=== PATIENT | male | born 1960 | race Caucasian/White ===

== ENCOUNTER → 2018-05-18 | Outpatient (CLI) | payer BC ==
--- NOTE | 2018-05-18 13:23 | CTL ---
EXAMINATION TYPE: CT Low Dose Lung DATE OF EXAM ORDERED: 05/18/2018 HISTORY: Personal history of tobacco abuse. Lung cancer screening CT DLP: [address] CTDI: 1.99 mGy Automated exposure control for dose reduction was used. SCREENING VISIT: Initial COMPARISON: None TECHNIQUE: Low dose computed tomography scan was performed through the chest at 1 mm thick sections a nd reconstructed images in the coronal plane at [address] DIAGNOSTIC QUALITY: Limited, but interpretable FINDINGS: LUNG NODULES: None. LUNGS: COPD: Severity: Mild Fibrosis: Severity: Biapical pleural-parenchymal scarring, left greater than right Lymph nodes: Nonenlarged Other findings: Mild diffuse peribronchial cuffing. RIGHT PLEURAL SPACE: Effusion: None Calcification: None Thickening: None Pneumothorax: None LEFT PLEURAL SPACE: Effusion: None Calcification: None Thickening: None Pneumothorax: None HEART: Heart Size: Nonenlarged Coronary calcification: Mild Pericardial effusion: None OTHER FINDINGS: Upper abdomen: Unremarkable on the limited unenhanced portions Bony thorax: Minimal multilevel degenerative change Supraclavicular region: Unremarkable IMPRESSION: Mild pulmonary emphysematous changes and biapical pleural parenchymal scarring with no si zable pulmonary nodules detected on the current examination however continued screening is recommende d in this patient with increased risk for development of pulmonary carcinoma. Diffuse peribronchial c uffing most commonly is seen in reactive airway disease in this patient with underlying emphysema alt colten can be of infectious etiology. FOLLOW UP CT CHEST RECOMMENDATION: Continued screening with low dose chest CT in 12 months. Tobacco c essation is also suggested. CT LUNG RAD: Lung-Rad 1 Negative
== END | disposition home or self-care (01) ==
LOC: RADCTMAIN 12:39
PROVIDERS: ATTEND Family Medicine
DX: Z12.2 Encounter for screening for malignant neoplasm of respiratory organs (principal); J43.9 Emphysema, unspecified; J98.4 Other disorders of lung; F17.210 Nicotine dependence, cigarettes, uncomplicated

== ENCOUNTER → 2018-06-28 | Outpatient (CLI) | payer BC, OTHER ==
--- NOTE | 2018-06-29 08:13 | US ---
EXAMINATION TYPE: US venous doppler duplex LE LT DATE OF EXAM: 06/28/2018 5:19 PM COMPARISON: NONE CLINICAL HISTORY: [id number] Contusion of left lower leg. Contusion of left lower leg. Injury to left lower leg. SIDE PERFORMED: Left TECHNIQUE: The lower extremity deep venous system is examined utilizing real time linear array sonog carlton with graded compression, doppler sonography and color-flow sonography. VESSELS IMAGED: External Iliac Vein (EIV) Common Femoral Vein Deep Femoral Vein Greater Saphenous Vein * Femoral Vein Popliteal Vein Small Saphenous Vein * Proximal Calf Veins (* superficial vessels) Left Leg: Negative for DVT No evidence of DVT in the left lower extremity. Scanned left posterior calf area of concern. Small amount of edema noted. No fluid collection seen. IMPRESSION: 1. No diagnostic evidence of displaced 2. Soft tissue edema.
== END | disposition home or self-care (01) ==
LOC: RADUSMAIN 16:42
PROVIDERS: ATTEND Pediatrics
DX: M79.89 Other specified soft tissue disorders (principal); S80.12XA Contusion of left lower leg, initial encounter

== ENCOUNTER → 2018-07-20 | Outpatient (CLI) | payer OTHER ==
--- NOTE | 2018-07-22 14:36 | MR ---
EXAMINATION TYPE: MR lumbar spine wo con DATE OF EXAM: 07/20/2018 COMPARISON: None HISTORY: LBP, LLE radic TECHNIQUE: Multiplanar, multisequence images of the lumbar spine were acquired. FINDINGS: There is decreased signal of the bone marrow throughout. Some Modic type II endplate change s are seen of L2 and L3. Additionally there are few areas of scattered T2/T1 hyperintense bone marrow remaining throughout the vertebrae. Multilevel intervertebral disc desiccation is seen. Conus medull molly is unremarkable terminating at L1. Vertebral body alignment is maintained. There is some vertebr al body height loss at multiple levels within the endplates from degenerative disc disease however th ere is anterior height loss of the L5 vertebral body of approximately 20% with no bone marrow edema. L1-L2: There is a right eccentric disc bulge creating mild right neural foraminal narrowing. Left sophia ral foramen and spinal canal are patent. Mild facet arthropathy is seen. L2-L3: There is a right eccentric disc bulge, facet arthropathy, and ligamentum flavum buckling contr ibuting to mild bilateral neuroforaminal foraminal narrowing without spinal canal stenosis. L3-L4: There is a right lateral disc herniation with some extent into the right lateral recess and ne ural foramen resulting in moderate right neural foraminal narrowing and mild left neural foraminal na rrowing in combination with facet arthropathy and mild ligamentum flavum buckling. L4-L5: There is a central disc herniation superimposed upon a broad-based disc bulge that in combinat ion with facet arthropathy and ligamentum flavum buckling create moderate bilateral neural foraminal narrowing and severe spinal canal stenosis. L5-S1: There is a broad-based disc bulge, facet arthropathy, and ligamentum flavum buckling as well a s a congenitally small spinal canal all contributing to severe spinal canal stenosis and mild bilater al neural foraminal narrowing. IMPRESSION: 1. Diffusely abnormal bone marrow signal of the lumbar spine. Multifocal metastasis should be exclude d with correlation with PSA, bone scan, and consideration for contrast-enhanced MRI if PSA and bone s can are negative. Alternatively this can be seen and anemia, chronic disease such as obesity and toba account associate abuse, or myeloproliferative disorders. 2. Chronic mild compression deformity of L5. 3. Severe spinal canal stenosis at L4-L5 and L5-S1 secondary to degenerative disc disease and central disc herniation at L4-L5. 4. Right lateral disc herniation at L3-L4 resulting in moderate right neural foraminal narrowing. 5. Variable degree of neural foraminal narrowing within the remainder of the vertebral levels.
== END | disposition home or self-care (01) ==
LOC: RADMRIMAIN 18:06
PROVIDERS: ATTEND Physical Medicine & Rehabilitation
DX: M48.07 Spinal stenosis, lumbosacral region (principal); M48.061 Spinal stenosis, lumbar region without neurogenic claudication; M51.16 Intervertebral disc disorders with radiculopathy, lumbar region; M51.17 Intervertebral disc disorders with radiculopathy, lumbosacral region; M43.8X6 Other specified deforming dorsopathies, lumbar region
CPT/HCPCS: 72148

== ENCOUNTER → 2018-08-06 | Outpatient (CLI) | payer BC ==
--- NOTE | 2018-08-06 13:54 | NM ---
EXAMINATION TYPE: NM bone scan whole body DATE OF EXAM: 08/06/2018 COMPARISON: MRI 07/20/2018 HISTORY: None Delayed whole-body scanning was performed following the injection of 24.7 mCi Tc 99m MDP. Images acq uired 3 hours post injection. FINDINGS: There is faintly increased uptake seen throughout the thoracic and lumbar spine with most marked love ges at the lumbosacral junction. Abnormal uptake involving the shoulders, hips likely post arthritic. Abnormal uptake involving the posterior right 10th rib may be hypertrophic related to previous trauma . IMPRESSION: 1. Mild increased uptake seen throughout the thoracic and lumbar spine. Given the reduced intensity o f uptake findings likely degenerative. Correlate clinically.
== END | disposition home or self-care (01) ==
LOC: RADNMMAIN 09:56
PROVIDERS: ATTEND Family Medicine
DX: R93.7 Abnormal findings on diagnostic imaging of other parts of musculoskeletal system (principal); R90.89 Other abnormal findings on diagnostic imaging of central nervous system
CPT/HCPCS: 78306; A9503

== ENCOUNTER → 2018-08-24 | Outpatient (CLI) | payer BC ==
--- NOTE | 2018-08-25 19:14 | MR ---
EXAMINATION TYPE: MR lumbar spine w con DATE OF EXAM: 08/24/2018 COMPARISON: Recent MRI lumbar spine July 20, 2018. Nuclear medicine bone scan August 06, 2018 HISTORY: Abnormal MRI, lumbar radiculopathy. TECHNIQUE: Multiplanar, multisequence images of the lumbar spine is performed with IV contrast, utilizing 9 mL i ntravenous Gadavist FINDINGS: Postcontrast images show no suspicious osseous or spinal canal enhancement. Modic type II e ndplate changes in the anterior L2-L3 level are redemonstrated. Overall heterogeneity of bone marrow signal intensity is redemonstrated. Multilevel degenerative changes are again seen as detailed on rec ent MRI report and images. IMPRESSION: As above.
== END ==
LOC: RADMRIMAIN 19:58
PROVIDERS: ATTEND Family Medicine
DX: M47.26 Other spondylosis with radiculopathy, lumbar region (principal)
CPT/HCPCS: 72149; A9585

== ENCOUNTER → 2019-03-01 | Outpatient (CLI) | payer SELFPAY ==
--- NOTE | 2019-03-01 12:54 | XR ---
EXAMINATION TYPE: XR chest 2V DATE OF EXAM: 03/01/2019 COMPARISON: NONE TECHNIQUE: PA and lateral views submitted. HISTORY: Presurgical testing FINDINGS: The lungs are clear and there is no pneumothorax, pleural effusion, or focal pneumonia. Postoperati ve change overlying the cervical spine. Arthropathy of the shoulders. Mild hyperinflation of the lung s correlate for COPD. IMPRESSION: 1. No acute process.
[2019-03-01 13:15] LABS: Basophils % (A) 0 %; Eosinophils # (A) 0.3 k/uL (0-0.7); Eosinophils % (A) 4 %; HCT 45.4 % (39.0-53.0); HGB 15.5 gm/dL (13.0-17.5); Lymphocytes # (A) 1.6 k/uL (1.0-4.8); Lymphocytes % (A) 25 %; MCHC 34.1 g/dL (31.0-37.0); MCV 99.7 fL (80.0-100.0); Mean Platelet Volume 7.5; Monocytes # (A) 0.4 k/uL (0-1.0); Monocytes % (A) 7 %; Neutrophils # (A) 4.1 k/uL (1.3-7.7); Neutrophils % (A) 62 %; Platelet Count 221 k/uL (150-450); RBC 4.56 m/uL (4.30-5.90); RDW 12.2 % (11.5-15.5); WBC 6.6 k/uL (3.8-10.6)
[2019-03-01 13:21] LABS: African American GFR (CKD) >90 (>60 ml/min/1.73 sqM); Anion Gap 9 mmol/L; Blood Urea Nitrogen 16 mg/dL (9-20); Calcium 9.7 mg/dL (8.4-10.2); Carbon Dioxide 27 mmol/L (22-30); Chloride 104 mmol/L (98-107); Glucose 88 mg/dL (74-99); Non-African American GFR(CKD) 80 (>60 ml/min/1.73 sqM); Potassium 4.7 mmol/L (3.5-5.1); Sodium 140 mmol/L (137-145)
[2019-03-01 13:30] LABS: INR 0.9 (<1.2); Prothrombin Time 9.8 sec (9.0-12.0)
[2019-03-01 13:35] LABS: Appearance,Urine Clear (Clear); Bilirubin,Urine Negative (Negative); Blood,Urine Negative (Negative); Color,Urine Colorless; Glucose,Urine (UA) Negative (Negative); Ketones,Urine Negative (Negative); Leukocyte Esterase,Urine Negative (Negative); Nitrite,Urine Negative (Negative); Protein,Urine Negative (Negative); Specific Gravity,Urine 1.001 (1.001-1.035); Urobilinogen,Urine <2.0 mg/dL (<2.0)
== END | disposition home or self-care (01) ==
LOC: LABPAT 12:20
PROVIDERS: ATTEND Orthopaedic Surgery Orthopaedic Surgery of the Spine
DX: Z01.812 Encounter for preprocedural laboratory examination (principal); Z01.818 Encounter for other preprocedural examination; M48.00 Spinal stenosis, site unspecified
CPT/HCPCS: 36415; 71046; 80048; 81003; 85025; 85610; 85730; 93005

== ENCOUNTER → 2019-03-06 | Day surgery (SDC) | payer BC, OTHER ==
[2019-03-04 13:15] VITALS: BMI 29.4
[~2019-03-06] MED LIST: BACITRACIN 50,000 UNIT, POLYMYXIN B 500,000 UNIT in SODIUM CHLORIDE 0.9% IRRIGATIO 1,00... IRRIGATION ONE; BENZOCAINE/MENTHOL LOZENG 1 EACH LOZENGE MUCOUS MEM PRN; DEXAMETHASONE SOD PHOSPHATE 10 MG/ML 1 ML VIAL IV ONE; GELATIN SPONGE,ABSORB (LARGE) 1 EACH SPONGE TOPICAL ONE; GLYCOPYRROLATE 0.2 MG/ML 2 ML VIAL ONE; HYDROcodone/APAP 5-325MG 1 EACH TAB PO ONE; HYDROcodone/APAP 5-325MG 1 EACH TAB PO PRN; HYDROmorphone (PF) 1 MG/ML ONE; HYDROmorphone 0.5 MG/0.5 ML SYRINGE IVP PRN; HYDROmorphone 1 MG/ML 1 ML SYRINGE IVP PRN; IBUPROFEN 600 MG TAB PO PRN; IBUPROFEN 800 MG TAB PO PRN; KETOROLAC 30 MG/ML 1 ML VIAL IVP PRN; LACTATED RINGERS 1,000 ML IV ONE; LACTATED RINGERS 1,000 ML IV SCH; LIDOCAINE 0.5%-EPI 1:200,000 50 ML VIAL SQ ONE; LIDOCAINE 1% 20 ML VIAL (10MG/ML) FOR IV START INTRADERMA PRN; LIDOCAINE 1% INJ 10MG/ML (20 ML MDV) ONE; MAGNESIUM HYDROXIDE 2,400 MG/10 ML CUP PO PRN; MIDAZOLAM 2 MG/2 ML VIAL IV PRN; MIDAZOLAM 2 MG/2 ML VIAL ONE; NEOSTIGMINE 1 MG/ML 10 ML VIAL ONE; ONDANSETRON 4 MG/2 ML VIAL IVP ONE; ONDANSETRON 4 MG/2 ML VIAL IVP PRN; PROPOFOL 10 MG/ML 20 ML VIAL IV ONE; ROCURONIUM BROMIDE 10 MG/ML 10 ML VIAL IV ONE; SCOPOLAMINE 1.5MG/72HR PATCH TRANSDERM ONE; SODIUM CHLORIDE 0.9% 1,000 ML IV SCH; SUCCINYLCHOLINE CHLORIDE 100 MG/5 ML SYR IV ONE; THROMBIN (BOVINE) 5,000 UNIT VIAL TOPICAL ONE; fentaNYL (PF) 50 MCG/ML 2 ML AMP ONE; methylPREDNISolone ACETATE 40 MG/ML 1 ML VIAL MISCELLANE ONE
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
[2019-03-06 10:42] VITALS: TEMP 98.3
[2019-03-06] MEDS: HYDROmorphone 0.5 MG/0.5 ML SYRINGE IVP PRN ×2 (10:50→11:00)
[2019-03-06] MEDS: fentaNYL (PF) 50 MCG/ML 2 ML AMP IV ONE ×2 (11:20→11:35)
[2019-03-06 14:24] VITALS: BP 110/71; PULSE 79; RESP 18
--- NOTE | 2019-03-07 07:58 | FL ---
Fluoroscopy HISTORY: Laminectomy 1 seconds fluoroscopy time supplied to the referring clinician. 1 intraoperative C-arm images docume nt the procedure. See dictated report from orthopedic surgery.
== END | disposition home or self-care (01) ==
LOC: OR 07:18
PROVIDERS: ATTEND Orthopaedic Surgery Orthopaedic Surgery of the Spine
DX: M48.062 Spinal stenosis, lumbar region with neurogenic claudication (principal); M48.07 Spinal stenosis, lumbosacral region; M51.16 Intervertebral disc disorders with radiculopathy, lumbar region; M47.26 Other spondylosis with radiculopathy, lumbar region; M16.0 Bilateral primary osteoarthritis of hip; F17.210 Nicotine dependence, cigarettes, uncomplicated; Z88.0 Allergy status to penicillin; Z88.5 Allergy status to narcotic agent; Z98.890 Other specified postprocedural states; Z79.1 Long term (current) use of non-steroidal anti-inflammatories (NSAID)
CPT/HCPCS: 86900; 86901; 86850; 63047; 63048; J2250; J1030; J2710; J0690; J2405; J2001; J3010; J1170 ×2; J0330; J2704

== ENCOUNTER 2020-12-21 09:34 | Day surgery (SDC) | payer BC ==
[2020-12-17 15:50] VITALS: BMI 29.7
[~2020-12-21 09:34] MED LIST changes: -BACITRACIN 50,000 UNIT, POLYMYXIN B 500,000 UNIT in SODIUM CHLORIDE 0.9% IRRIGATIO 1,00... IRRIGATION ONE; -BENZOCAINE/MENTHOL LOZENG 1 EACH LOZENGE MUCOUS MEM PRN; -DEXAMETHASONE SOD PHOSPHATE 10 MG/ML 1 ML VIAL IV ONE; -GELATIN SPONGE,ABSORB (LARGE) 1 EACH SPONGE TOPICAL ONE; -GLYCOPYRROLATE 0.2 MG/ML 2 ML VIAL ONE; -HYDROcodone/APAP 5-325MG 1 EACH TAB PO ONE; -HYDROcodone/APAP 5-325MG 1 EACH TAB PO PRN; -HYDROmorphone (PF) 1 MG/ML ONE; -HYDROmorphone 0.5 MG/0.5 ML SYRINGE IVP PRN; -HYDROmorphone 1 MG/ML 1 ML SYRINGE IVP PRN; -IBUPROFEN 600 MG TAB PO PRN; -IBUPROFEN 800 MG TAB PO PRN; -KETOROLAC 30 MG/ML 1 ML VIAL IVP PRN; -LACTATED RINGERS 1,000 ML IV ONE; -LIDOCAINE 0.5%-EPI 1:200,000 50 ML VIAL SQ ONE; +LIDOCAINE 1% (10MG/ML) FOR IV START INTRADERMA PRN; -LIDOCAINE 1% 20 ML VIAL (10MG/ML) FOR IV START INTRADERMA PRN; -LIDOCAINE 1% INJ 10MG/ML (20 ML MDV) ONE; -MAGNESIUM HYDROXIDE 2,400 MG/10 ML CUP PO PRN; -MIDAZOLAM 2 MG/2 ML VIAL IV PRN; -MIDAZOLAM 2 MG/2 ML VIAL ONE; -NEOSTIGMINE 1 MG/ML 10 ML VIAL ONE; -ONDANSETRON 4 MG/2 ML VIAL IVP ONE; -ONDANSETRON 4 MG/2 ML VIAL IVP PRN; -PROPOFOL 10 MG/ML 20 ML VIAL IV ONE; -ROCURONIUM BROMIDE 10 MG/ML 10 ML VIAL IV ONE; -SCOPOLAMINE 1.5MG/72HR PATCH TRANSDERM ONE; -SODIUM CHLORIDE 0.9% 1,000 ML IV SCH; -SUCCINYLCHOLINE CHLORIDE 100 MG/5 ML SYR IV ONE; -THROMBIN (BOVINE) 5,000 UNIT VIAL TOPICAL ONE; -fentaNYL (PF) 50 MCG/ML 2 ML AMP ONE; -methylPREDNISolone ACETATE 40 MG/ML 1 ML VIAL MISCELLANE ONE
[2020-12-21 10:24] VITALS: RESP 16; TEMP 97.1
[2020-12-21] MEDS ORDERED: PROPOFOL 10 MG/ML 20 ML VIAL IV ONE (11:36)
--- NOTE | 2020-12-21 11:39 | P.GSHP ---
History of Present Illness H&P Date: 12/21/20 Chief Complaint: Screening colonoscopy This a 60-year-old male presents today for screening colonoscopy. Patient denies a significant GI complaints. Past Medical History Additional Past Medical History / Comment(s): anemia History of Any Multi-Drug Resistant Organisms: None Reported Past Surgical History: Back Surgery, Hernia Repair, Orthopedic Surgery Additional Past Surgical History / Comment(s): colonoscopy,lt shoulder repair Past Anesthesia/Blood Transfusion Reactions: No Reported Reaction Smoking Status: Current every day smoker - Past Family History Mother Family Medical History: No Reported History Father Family Medical History: Cancer Additional Family Medical History / Comment(s): prostate, lymphoma Medications and Allergies Home Medications Medication Instructions Recorded Confirmed Type Ibuprofen [Motrin] 200 - 800 mg PO BID PRN 03/04/19 12/21/20 History Allergies Allergy/AdvReac Type Severity Reaction Status Date / Time codeine Allergy Rash/Hives Verified 12/21/20 10:25 Penicillins Allergy Rash/Hives Verified 12/21/20 10:25 Surgical - Exam Vital Signs Temp Pulse Resp BP Pulse Ox 97.1 F L 91 16 135/87 98 12/21/20 10:23 12/21/20 10:23 12/21/20 10:23 12/21/20 10:23 12/21/20 10:23 - General well developed, well nourished, no distress - Eyes PERRL - ENT normal pinna - Neck no masses - Respiratory normal expansion - Cardiovascular Rhythm: regular - Abdomen Abdomen: soft, non tender Assessment and Plan Assessment: We'll perform screening colonoscopy.
--- NOTE | 2020-12-21 11:47 | P.OP ---
Date of Procedure: 12/21/20 Preoperative Diagnosis: Screening colonoscopy Postoperative Diagnosis: Normal colon Procedure(s) Performed: Colonoscopy Anesthesia: MAC Surgeon: Jose Ramon Matthews Pathology: none sent Condition: stable Disposition: PACU Description of Procedure: PROCEDURE: The patient was placed on the endoscopy table in the lateral position. Digital rectal examination was performed which revealed no abnormalities. The prostate was symmetrical without nodules. Flexible colonoscope was then placed in the patient's anus and passed throughout the entire colon. The ileocecal valve was visualized. The cecum, ascending, transverse, descending and sigmoid colon were normal. The rectum was normal as well. There were no masses, polyps or diverticula noted in the entire colon. SUMMARY OF FINDINGS: Normal colonoscopy.
[2020-12-21 12:08] VITALS: BP 126/75; PULSE 87
== END 2020-12-21 12:26 | disposition home or self-care (01) ==
LOC: ORWHC2ENDO 09:34
PROVIDERS: ATTEND Surgery
DX: Z12.11 Encounter for screening for malignant neoplasm of colon (principal); D64.9 Anemia, unspecified; F17.200 Nicotine dependence, unspecified, uncomplicated; Z98.890 Other specified postprocedural states; Z80.7 Family history of other malignant neoplasms of lymphoid, hematopoietic and related tissues; Z80.42 Family history of malignant neoplasm of prostate; Z88.0 Allergy status to penicillin; Z88.5 Allergy status to narcotic agent
CPT/HCPCS: J2704; G0121

== ENCOUNTER → 2021-02-15 | Outpatient (CLI) | payer BC ==
[2021-02-15 15:39] LABS: HGB 14.6 gm/dL (13.0-17.5); MCHC 34.1 g/dL (31.0-37.0); MCV 99.7 fL (80.0-100.0); Mean Platelet Volume 7.9; Platelet Count 219 k/uL (150-450); RBC 4.31 m/uL (4.30-5.90); RDW 12.3 % (11.5-15.5); WBC 7.2 k/uL (3.8-10.6)
[2021-02-15 15:50] LABS: ALT 28 U/L (4-49); AST 37 U/L (17-59); African American GFR (CKD) >90 (>60 ml/min/1.73 sqM); Albumin 4.2 g/dL (3.5-5.0); Alkaline Phosphatase 83 U/L (38-126); Anion Gap 8 mmol/L; Blood Urea Nitrogen 14 mg/dL (9-20); Calcium 9.4 mg/dL (8.4-10.2); Carbon Dioxide 24 mmol/L (22-30); Chloride 104 mmol/L (98-107); Glucose 89 mg/dL (74-99); Non-African American GFR(CKD) >90 (>60 ml/min/1.73 sqM); Potassium 4.6 mmol/L (3.5-5.1); Sodium 136 mmol/L (137-145); Total Bilirubin 0.7 mg/dL (0.2-1.3); Total Protein 7.5 g/dL (6.3-8.2)
[2021-02-15 16:03] LABS: Appearance,Urine Clear (Clear); Bilirubin,Urine Negative (Negative); Blood,Urine Negative (Negative); Color,Urine Yellow; Glucose,Urine (UA) Negative (Negative); INR 0.9 (<1.2); Ketones,Urine Negative (Negative); Leukocyte Esterase,Urine Negative (Negative); Nitrite,Urine Negative (Negative); PH, Urine 5.5 (5.0-8.0); Partial Thromboplastin Time 24.4 sec (22.0-30.0); Protein,Urine Negative (Negative); Prothrombin Time 10.1 sec (9.0-12.0); Specific Gravity,Urine 1.018 (1.001-1.035); Urobilinogen,Urine <2.0 mg/dL (<2.0)
== END | disposition home or self-care (01) ==
LOC: LABPAT 13:01
PROVIDERS: ATTEND Orthopaedic Surgery
DX: Z01.812 Encounter for preprocedural laboratory examination (principal)
CPT/HCPCS: 36415; 80053; 81003; 85027; 85610; 85730; 87070

== ENCOUNTER 2021-02-23 05:33 | Day surgery (SDC) | payer BC ==
[2021-02-16 11:22] VITALS: BMI 28.8
[~2021-02-23 05:33] MED LIST changes: +ACETAMINOPHEN TAB 500 MG TAB PO PRN; +GABAPENTIN 300 MG CAP PO PRN; -LACTATED RINGERS 1,000 ML IV SCH; -LIDOCAINE 1% (10MG/ML) FOR IV START INTRADERMA PRN; +MELOXICAM 7.5 MG TAB PO PRN; +TRANEXAMIC ACID 1,000 MG in SODIUM CHLORIDE 0.9% 100 ML IVPB PRN
[2021-02-23] MEDS ORDERED: LACTATED RINGERS 1,000 ML IV SCH (05:39)
[2021-02-23] MEDS ORDERED: ONDANSETRON 4 MG/2 ML VIAL IVP ONE (05:39)
[2021-02-23] MEDS ORDERED: DEXAMETHASONE SOD PHOSPHATE 4 MG/ML 1 ML VIAL IV ONE (05:39)
[2021-02-23] MEDS ORDERED: PHENYLEPHRINE-0.9% NACL SYG 1,000 MCG/10 ML SYRINGE ONE (06:50)
[2021-02-23] MEDS ORDERED: HYDROmorphone (PF) 1 MG/ML ONE (06:50)
[2021-02-23] MEDS ORDERED: fentaNYL (PF) 50 MCG/ML 2 ML AMP ONE (06:50)
[2021-02-23] MEDS ORDERED: PROPOFOL 10 MG/ML 20 ML VIAL IV ONE (06:50)
[2021-02-23] MEDS ORDERED: GLYCOPYRROLATE 0.2 MG/ML 2 ML VIAL ONE (06:50)
[2021-02-23] MEDS ORDERED: TRANEXAMIC ACID 1,000 MG/10 ML VIAL ONE (06:50)
[2021-02-23] MEDS ORDERED: ROCURONIUM 10 MG/ML (5 ML VIAL) IV ONE (06:50)
[2021-02-23] MEDS ORDERED: LIDOCAINE 1% INJ 10MG/ML (20 ML MDV) ONE (06:50)
[2021-02-23] MEDS ORDERED: SCOPOLAMINE 1.5MG/72HR PATCH TRANSDERM ONE (06:50)
[2021-02-23] MEDS ORDERED: NEOSTIGMINE 1 MG/ML 10 ML VIAL ONE (06:50)
[2021-02-23] MEDS ORDERED: SODIUM CHLORIDE 0.9% 100 ML BAG ONE (06:50)
[2021-02-23] MEDS ORDERED: SUCCINYLCHOLINE CHLORIDE VIAL 200 MG/10 ML VIAL IV ONE (06:50)
[2021-02-23] MEDS ORDERED: MIDAZOLAM 2 MG/2 ML VIAL ONE (06:50)
[2021-02-23] MEDS ORDERED: SODIUM CHLORIDE 0.9% IRRIG 1,000 ML BTL IRRIGATION ONE (06:52)
[2021-02-23] MEDS ORDERED: HEPARIN SODIUM,PORCINE 10,000 UNIT/ML 1 ML VIAL ONE (06:52)
[2021-02-23] MEDS ORDERED: ceFAZolin 1,000 MG in SODIUM CHLORIDE 0.9% 1,000 ML IRRIGATION ONE (06:57)
[2021-02-23] MEDS ORDERED: HYDROmorphone 0.2 MG/1 ML SYRINGE IVP PRN (06:59)
[2021-02-23] MEDS ORDERED: NALOXONE 0.4 MG/ML 1 ML VIAL IV PRN (06:59)
[2021-02-23] MEDS ORDERED: HYDROmorphone 0.5 MG/0.5 ML SYRINGE IVP PRN (06:59)
[2021-02-23] MEDS ORDERED: ONDANSETRON 4 MG/2 ML VIAL IVP PRN (06:59)
[2021-02-23] MEDS ORDERED: HYDROmorphone 1 MG/ML 1 ML SYRINGE IVP PRN (06:59)
[2021-02-23] MEDS ORDERED: SODIUM CHLORIDE 0.9% 1,000 ML IV SCH (07:00)
[2021-02-23] MEDS ORDERED: HYDROcodone/APAP 7.5-325MG 1 EACH TAB PO PRN ×2 (07:01)
[2021-02-23] MEDS: ROPIVACAINE/EPI/CLONIDINE/KET 50 ML SYRINGE MISCELLANE PRN ×2 (07:14→08:04)
[2021-02-23] MEDS ORDERED: LACTATED RINGERS 1,000 ML IV ONE (07:56)
--- NOTE | 2021-02-23 08:14 | P.OP ---
Date of Procedure: 02/23/21 Preoperative Diagnosis: Severe Osteoarthritis right hip Postoperative Diagnosis: Severe osteoarthritis right hip Procedure(s) Performed: Right total hip arthroplasty with a direct anterior approach Implants: [employer] Polarstem standard size 7, collar [employer] R3, 3 hole hemispherical acetabular shell, 58 mm [employer] Reflection 6.5 mm cancellus screw, 20 mm, 25 mm [employer] R3, XLPE 20 acetabular liner [employer] Oxinium femoral head 36 m, +0 All components were press-fit. The articulation is Oxinium on polyethylene. Anesthesia: GETA Surgeon: Nakul Hester [employer] #1: Klarissa Christensen Estimated Blood Loss (ml): 100 Pathology: other (Femoral head) Condition: stable Disposition: PACU Indications for Procedure: After failure of conservative treatment we discussed the surgical and nonsurgical treatment options at length. Patient wishes to proceed with a total hip arthroplasty with a direct anterior approach. Complications specific to this procedure were discussed at length, including but not limited to infection, leg length discrepancy, dislocation, nerve injury, and fracture. Covid-19 was also discussed at length with the patient, and they are aware of the current policies and procedures. The patient was given the option of delaying surgery, but they elect to proceed knowing these risks. Patient is aware of all these complications and informed consent was obtained Operative Findings: The operative findings are consistent with severe osteoarthritis of the right hip Description of Procedure: Patient was seen and evaluated in the preoperative area and the consent was reviewed. The operative site was marked with a skin marker. The patient was then brought to the operating room and given preoperative antibiotics intravenously. 1 g of Tranexamic acid was also given intravenously. A general anesthetic was administered by the anesthesia department. The patient was then placed on the [place] table with the bony prominences well-padded. The hip area was then prepped with a ChloraPrep solution and draped in the usual sterile fashion. A universal timeout was then performed, which confirmed the patient's name, surgical site, ALLERGIES, and procedure being performed on the consent. Next the incision site was located at 1 cm distal and 2 cm lateral to the anterior superior iliac spine. The skin and subcutaneous tissues were sharply incised. Incision was carefully dissected down to the fascia overlying the tensor fascia home muscle. This fascia was then incised in line with the incision. Care was taken to stay laterally in order to avoid injuring the lateral femoral cutaneous nerve. Next, using blunt finger dissection, the tensor fascia home muscle was dissected off its investing fascia. The muscle was then carefully retracted laterally with a cobra retractor over the lateral neck of the femur. Next, the circumflex vessels were identified and cauterized using the AquaMantis device. The anterior hip capsule was then exposed. The capsule was then opened and an inverted T fashion. Cobra retractors were then placed intracapsularly. The retractors were maintained intracapsular throughout the procedure. The proximal femur was then visualized. Fluoroscopic x-rays were then taken in order to evaluate the preoperative leg lengths. A small amount of traction was placed on the leg. The femoral neck was then osteotomized appropriate level above the lesser trochanter. A small wedge of bone was then removed from the remaining femoral head. Next, using a corkscrew the femoral head was removed from the acetabulum. On gross visual inspection, the femoral head had complete loss of articular cartilage and multiple periarticular osteophytes. The femoral head was then me asured. Attention was then turned to the acetabulum. The acetabulum was exposed and any remaining labrum was excised. Sequential reaming of the acetabulum was performed using fluoroscopic guidance until there was a good bed of bleeding cancellus bone. When the appropriate size was reached, a trial was then placed. The position and fit of the trial was checked with fluoroscopy. The trial was then removed. Then, using fluoroscopic guidance, the final implant was impacted at 20 of anteversion and 40 of abduction, and fully seated in the acetabulum. 2 screws were then placed in the acetabulum. Again fluoroscopy was used to check position of the screws. Next, the liner was then impacted, with a 20 elevated liner located in the anterior superior quadrant. Component locking was confirmed. Attention was then directed to the femur. With the aid of the [place] table, the femur was externally rotated to approximately 130, extended, and adducted under the opposite leg. A side hook was then placed under the proximal femur, and the side hook elevator was used to elevate the proximal femur while releasing the capsule. Retractors were then placed. A capsular release was performed, as well as a release of the conjoined tendon, which afforded excellent visualization of the proximal femur. Next, a box osteotome was used to lateralize the proximal femur. A ground hand was then used to locate the femoral canal. Sequential broaching was then performed with appropriate size which afforded excellent fixation in the proximal femur. A trial was then placed with appropriate head and neck, and the hip was gently reduced with the aid of the [place] table. Fluoroscopy was then used to check position of the components, as well as to ensure equal leg lengths. The hip was then gently dislocated and the trials were then removed. Final implants were then impacted and the hip was again reduced. Final fluoroscopic x-rays confirmed that the components were in anatomic position, as well as equal leg lengths. The hip was also taken through range of motion, and found to be stable. The hip was then copiously irrigated with antibiotic solution with pulsatile lavage. The hip was then irrigated with Irrisept solution. The soft tissues were then injected with a ropivacaine solution, which consisted of 246.25 mg of ropivacaine, 0.5 mg of epinephrine, 30 mg of Toradol, 80 g of clonidine, and 48.45 mL of sterile water, for a total of 100 mL of fluid injected. A second dose of 1 g of Tranexamic acid was also given intravenously. Any blood collected by [employer] was then returned to the patient at this time. The fascia was then closed with 2-0 strata fix suture. The subcutaneous tissue was closed with 3-0 Vicryl. The subcuticular tissue was closed with 3-0 strata fix suture. The skin was then closed with Exofin skin glue. After the glue and dried, and Optifoam silver impregnated dressing was applied. The patient was then transferred to the recovery room in stable condition. The assistant associate professor CLARA Centeno was required due to the complexity of surgery, and the need for skilled surgical resident for positioning, draping, exposure, retraction, and closure of the wound.
--- NOTE | 2021-02-23 08:30 | XR ---
EXAMINATION TYPE: XR Hip Limited RT DATE OF EXAM: 02/23/2021 COMPARISON: NONE HISTORY: Postop TECHNIQUE: One view submitted. FINDINGS: There is postsurgical change in near anatomic alignment. There is soft tissue edema and emphysema. IMPRESSION: 1. Postoperative change. Appears in near-anatomic alignment.
--- NOTE | 2021-02-23 08:39 | FL ---
EXAMINATION TYPE: FL guidance operating room DATE OF EXAM: 02/23/2021 HISTORY: Fluoroscopy time 35 seconds of fluoroscopy provided. IMPRESSION: 1. Fluoroscopy time.
[2021-02-23 08:46] VITALS: TEMP 97.2
[2021-02-23] MEDS: HYDROmorphone 0.5 MG/0.5 ML SYRINGE IVP PRN ×3 (08:50→09:16)
--- NOTE | 2021-02-23 09:54 | XR ---
EXAMINATION TYPE: XR Hip Limited RT DATE OF EXAM: 02/23/2021 COMPARISON: NONE HISTORY: POST-OP RIGHT HIP TECHNIQUE: One view submitted. FINDINGS: There is postsurgical change in near anatomic alignment. There is soft tissue edema and emphysema. IMPRESSION: 1. Postoperative change. Appears in near-anatomic alignment.
[2021-02-23 11:58] VITALS: BP 125/68; PULSE 99; RESP 17
== END 2021-02-23 12:26 | disposition home health service (06) ==
LOC: OR 05:33
PROVIDERS: ATTEND Orthopaedic Surgery
DX: M16.11 Unilateral primary osteoarthritis, right hip (principal); Z83.3 Family history of diabetes mellitus; F17.200 Nicotine dependence, unspecified, uncomplicated; K21.9 Gastro-esophageal reflux disease without esophagitis; Z98.890 Other specified postprocedural states; Z79.1 Long term (current) use of non-steroidal anti-inflammatories (NSAID); Z79.891 Long term (current) use of opiate analgesic; Z79.899 Other long term (current) drug therapy; Z88.0 Allergy status to penicillin; Z88.5 Allergy status to narcotic agent
CPT/HCPCS: 97110; 97161; 86891; 86900; 86901; 86850; 88300; 73501; 27130; C1776; J2250; J0330; J1644; J1100; J2710; J0690 ×2; J2405; J2001; J3010; J1170 ×2; J2370; J2704

== ENCOUNTER → 2024-05-29 | Outpatient (CLI) | payer BC ==
--- NOTE | 2024-05-29 13:57 | US ---
EXAMINATION TYPE: US venous doppler duplex LE BI DATE OF EXAM: 05/29/2024 1:47 PM COMPARISON: NONE CLINICAL INDICATION: Male, 64 years old with history of R60.0 LOCALIZED EDEMA; swelling to right leg, no h/o dvt, left leg also ordered TECHNIQUE: The lower extremity deep venous system is examined utilizing real time linear array sonog [place] with graded compression, color doppler sonography, and spectral doppler. SIDE PERFORMED: Bilateral FINDINGS: VESSELS IMAGED: Common Femoral Vein Deep Femoral Vein Greater Saphenous Vein * Femoral Vein Popliteal Vein Small Saphenous Vein * Proximal Calf Veins (* superficial vessels) Right Leg: Negative for DVT, Color Doppler imaging shows patency of the vessels. Spectral waveforms are within normal limits. Left Leg: Negative for DVT, Color Doppler imaging shows patency of the vessels. Spectral waveforms a re within normal limits. IMPRESSION: No ultrasound evidence for deep venous thrombosis. [facility], , 05/29/2024 1:55 PM
== END | disposition home or self-care (01) ==
LOC: RADUSWWP 13:17
PROVIDERS: ATTEND Family Medicine
DX: R60.0 Localized edema (principal)
CPT/HCPCS: 93970